=== PATIENT | female | born 2005 | race Caucasian/White ===

== ENCOUNTER 2025-05-19 14:43 | Emergency (ER) | payer OTHER, SELFPAY ==
[2025-05-19 15:06] VITALS: BP 122/91
--- NOTE | 2025-05-19 15:50 | ED.GENMED ---
History of Present Illness
<Louisa Barnett PA-C - Last Filed: 05/20/25 00:30>
General
Chief Complaint: Crisis Evaluation
Source: family
Exam Limitations: altered mental status
Time Seen by Provider: 05/19/25 15:26
Nursing documentation reviewed up to this point in time: agreed with
History of Present Illness
History of Present Illness:
Patient is a 19-year-old female who presents to the emergency department with family for crisis evaluation. Patient has lengthy history of psychiatric illness and apparently has been displaying very bizarre behavior over the past few days. Mom
states the patient is currently living with her boyfriend and his father. Boyfriend brought patient to her mom's house 2 days ago given racing and disorganized thoughts. Mom states that she has 'been speaking gibberish' over the past few days.
She has been easily agitated. Given acute change in behavior her psychiatrist did arrange for mobile crisis evaluation who ultimately recommended inpatient treatment.
Of note�mosuleman recently became aware that she had self-discontinued her psychiatric medications back in September. Patient is currently under the care of a psychiatrist and was recently switched to olanzapine. Patient has been refusing to take olanzipine
for the past few days.
Patient has required inpatient psychiatric care in the past.
Review of Systems
<Louisa Barnett PA-C - Last Filed: 05/20/25 00:30>
Review of Systems
Allergies reviewed?: Yes
All Other Systems: ROS reviewed and negative except as documented in HPI and ROS
Phy Exam
<Louisa Barnett PA-C - Last Filed: 05/20/25 00:30>
Physical Exam
Physical Exam:
Vitals: Tachycardic, otherwise vital stable. Afebrile
General: Patient appears well-nourished.
Skin: Warm and dry, no rashes or lesions
Head: Normocephalic, atraumatic
Throat: Protecting airway
Neck: Normal ROM, no cervical spine tenderness
Cardiac: Tachycardic, normal rhythm
Pulm: No apparent respiratory distress
Abdomen: Nondistended
Extremities: No evidence of cyanosis or edema
Neuro: Grossly intact
Psychiatric: Bizarre affect with pressured speech. Disorganized thoughts.
Course
<Louisa Barnett PA-C - Last Filed: 05/20/25 00:30>
Orders/Labs/Results
Orders:
Orders
05/19/25 15:27
Crisis Consult Urgent
Reason for Consult: psychosis
05/19/25 15:28
Test Result ONCE
05/19/25 16:04
Vital Signs- Treatment ONCE
Frequency: Once
05/19/25 18:42
HCG, Urine Qualitative Screen Urgent
Date Specimen was Collected: 05/19/25
Time Specimen was Collected: 18:41
Urine Drug Abuse Screen Urgent
Date Specimen was Collected: 05/19/25
Time Specimen was Collected: 18:41
Vital Signs
Initial and Last Documented VS:
Initial Vital Signs
Pulse BP Pulse Ox
115 122/91 96
05/19/25 15:06 05/19/25 15:06 05/19/25 15:06
Last Documented Vital Signs
Pulse BP Pulse Ox
115 122/91 96
05/19/25 15:06 05/19/25 15:06 05/19/25 15:50
<Julio Ordoñez MD - Last Filed: 05/19/25 16:04>
Orders/Labs/Results
Orders:
Orders
05/19/25 15:27
Crisis Consult Urgent
Reason for Consult: psychosis
05/19/25 15:28
Test Result ONCE
05/19/25 16:04
Vital Signs- Treatment ONCE
Frequency: Once
05/19/25 18:42
HCG, Urine Qualitative Screen Urgent
Date Specimen was Collected: 05/19/25
Time Specimen was Collected: 18:41
Urine Drug Abuse Screen Urgent
Date Specimen was Collected: 05/19/25
Time Specimen was Collected: 18:41
Vital Signs
Initial and Last Documented VS:
Initial Vital Signs
Pulse BP Pulse Ox
115 122/91 96
05/19/25 15:06 05/19/25 15:06 05/19/25 15:06
Last Documented Vital Signs
Pulse BP Pulse Ox
115 122/91 96
05/19/25 15:06 05/19/25 15:06 05/19/25 15:50
<Louisa Barnett PA-C - Last Filed: 05/20/25 00:30>
MDM/Problems Addressed
Differential Diagnosis Includes:
Not limited to: Acute psychosis, medication noncompliance, etc.
MDM/Problems Addressed:
19 year old female w/ history of psychiatric illness presenting with bizarre affect and disorganized thoughts over the past few days. Apparently has been noncompliant with medication for months now. Similar episodes in past requiring inpatient
psychiatric treatment. On exam, vilmat is alert and oriented, currently calm and cooperative. She displays a very disorganized thought process.
She was evaluated by mobile crisis and ultimately referred for inpatient placement.
Impression is acute psychosis likely secondary to medication noncompliance. Patient seen in conjunction with crisis staff. Patient accepted to [facility] for continued inpatient psychiatric care. Family agreeable - she will go in
under 201. Plan for transportation tonight.
Chronic conditions affecting care:
Psychiatric illness
Acute Exacerbation and/or Progression of Chronic Illness:
Acute psychosis
<Louisa Barnett PA-C - Last Filed: 05/20/25 00:30>
*Pulse Oximetry
SaO2: 96
Oxygen Mode of Delivery: Room air
Patient hypoxic: no
*EKG
Interpreted by ED Provider?: NA
*Inventory Assistant Interpretation
Rate: Inventory Assistant- N/A
*Critical Care Note
Total Time (30-74mins, 75-104mins- exclusive of procedures): Not Applicable
ED Attending Note
<Louisa Barnett PA-C - Last Filed: 05/20/25 00:30>
-
Portions of this chart may have been created with voice recognition software.� Occasional wrong word or��sound alike� substitutions may have occurred due to the inherent limitations of voice recognition software.
<Julio Ordoñez MD - Last Filed: 05/19/25 16:04>
ED Attending Note
Patient seen and examined by attending physician: Yes
ED Attending Note:
I have seen and evaluated the patient with a [id number] encounter. I have spoken to the advance practicer provider and involved in the medical history, the physical exam, medical decision making.
Evaluation and management service: agree unless noted differently below.
Results interpretation: agree unless noted differently below.
Focused HPI: 19-year-old female with history as noted presents with family for evaluation of sue. Patient has reportedly been noncompliant with her psychiatric meds and for the past few days has been exhibiting bizarre behavior. Today was
evaluated by mobile crisis and recommended for inpatient psychiatric treatment.
Physical exam: Awake and alert, calm and cooperative presently. Pressured speech, bizarre affect.
Medical Decision Makin-year-old female presents for evaluation of bizarre behavior in the setting of reported noncompliance with her psychiatric meds. Similar issues in the past. Patient cooperative with treatment currently, seen in
consultation with crisis team, work towards placement�it sounds like there is a bed available at [facility].
Discharge Plan
Departure
Patient Disposition: Psych Facility
Date of Disposition: 05/19/25
Time of Disposition: 16:04
Discharge Problem:
Psychosis
Prescriptions:
No Action
No Current Medications
0
Referrals:
Estefani Tenorio MD [Family Provider, Internal Medicine]
Interventions
Interventions:
*General Assessment Last Done: 05/19/25 17:45
*Neglect/Abuse Screening Last Done: 05/19/25 18:00
*ED COVID-19 Vaccine History Last Done: 05/19/25 17:45
*ED Influenza Vaccine History Last Done: 05/19/25 17:45
*Risk Screen - Suicide (C-SSRS) Last Done: 05/19/25 17:47
*Nursing Disposition Last Done: 05/19/25 18:54
ED-Psychological Assessment Last Done: 05/19/25 17:49
Discharge Date and Time
Discharge Date/Time: 05/19/25 18:59
Print Language: MACANESE
[2025-05-19 18:50] LABS: HCG, Urine Qualitative Screen Negative
== END 2025-05-19 18:59 ==
LOC: EMR 14:43
PROVIDERS: Physician Assistant; EMERGENCY PHYSICIAN Emergency Medicine; FAMILY PHYSICIAN Hospitalist
DX: F23 Brief psychotic disorder (principal); R45.1 Restlessness and agitation; Z91.148 Patient's other noncompliance with medication regimen for other reason
CPT/HCPCS: 99285; 80306; 81025